=== PATIENT | male | born 1990 | race Caucasian/White ===

== ENCOUNTER 2023-05-14 13:21 | Emergency (ER) | payer SELFPAY ==
[2023-05-14 13:28] VITALS: BP 122/76; PULSE 85; TEMP 36.6; O2SAT 97; BMI 24.4
--- NOTE | 2023-05-14 13:54 | CRLHL7_ITS ---
For Patients: As a result of the Century Cures Act, medical imaging exams and procedure reports are released immediately into your electronic medical record. You may view this report before your referring provider. If you have questions, please contact your health care provider. INDICATION: Hematuria. TECHNIQUE: CT abdomen and pelvis without contrast. COMPARISON: None. FINDINGS: Lower chest: No focal consolidation. Evaluation of solid organs is limited secondary to lack of IV contrast administration. Liver: No suspicious focal hepatic lesion. Gallbladder and bile ducts: Gallbladder is decompressed, suboptimally evaluated. No calcified gallstones. Pancreas: Unremarkable. Spleen: Unremarkable. Adrenal glands: Unremarkable. Kidneys: No renal calculi or hydronephrosis bilaterally. Retroperitoneum: No lymphadenopathy. Bowel and mesentery: Bowel is nonobstructed. Normal appendix. No significant ascites. No pneumoperitoneum. Bladder: Mild circumferential bladder wall thickening. Reproductive organs: No prostatomegaly. Pelvic lymph nodes: No lymphadenopathy. Vessels: Unremarkable for unenhanced study. Abdominal wall: No acute abdominal wall abnormality. Bones: No suspicious/aggressive focal osseous lesion. Degenerative changes are noted at L4-L5, L5-S1, with calcifications in the intervertebral discs. IMPRESSION: 1. No renal calculi or hydronephrosis bilaterally. 2. Very mild circumferential bladder wall thickening is noted. Recommend correlation with urinalysis. Please note that all CT scans at this facility use dose modulation, iterative reconstruction, and/or weight-based dosing when appropriate to reduce radiation dose to as low as reasonably achievable. Dictated by Jane Kumar MD @ 05/14/2023 4:00:33 PM (Electronically Signed)
--- NOTE | 2023-05-14 13:55 | ED_ITS ---
HPI - General Adult General Chief complaint: Urogenital Problems, Male Stated complaint: blood in urine, stomach ache Time Seen by Provider: 05/14/23 13:36 History of Present Illness HPI narrative: Patient is a 33 year white male who has got a monogamous girlfriend with several children, he reports a 6 month history of intermittent urinary symptoms with inability to full void or occasional dribbling of urine. He reports that over the last week he has had some lower abdominal left-sided abdominal pain as well as some clotting and bleeding when he urinates. He has no dysuria. He has no fever chills peritonitis symptoms or nausea vomiting. He is concerned about this and wishes to have this worked up and studied. 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 He has had no trauma or injury. No dysuria or frequency to his report. Related Data Previous Rx's Medication Instructions Recorded sulfamethoxazole 800 1 tab PO BID 14 days #28 tabs 05/14/23 mg-trimethoprim 160 mg tablet Allergies Allergy/AdvReac Type Severity Reaction Status Date / Time No Known Drug Allergies Allergy Verified 05/14/23 13:32 Review of Systems Status of ROS: Reports: 6 or more systems reviewed and unremarkable except as noted in History and below PFSH [facility] Social History Smoking Status: Current every day smoker What tobacco products do you use: cigarettes Smoking packs per day: 0.5 Smoking cigarettes per day: 10.0 Do you use any of these nicotine containing products: E-Cigarettes and Vaping Products How often do you have a drink containing alcohol: never AUDIT-C Alcohol total score: 0 Non-prescribed substance use: marijuana (any form) service: No Exam Narrative: Exam Narrative: Objective: Vital signs unremarkable in general patient apparent distress Abdomen benign soft nontender no masses appears normal examination no testicular pain no obvious penile lesions or injury. Extremities normal neurologic nonfocal, good peripheral perfusion. Const: Vital Signs, click to edit/add: Vital Signs - 24 hr 05/14/23 13:28 Temperature 97.8 F Pulse Rate [Left P ulse Oximeter] 85 Blood Pressure [Le ft Upper Arm] 122/76 Pulse Oximetry 97 Oxygen Delivery Me thod Room Air Course Vital Signs Vital signs: Initial Vital Signs Temperature 97.8 F 05/14/23 13:28 Temperature Source Temporal Artery Scan 05/14/23 13:28 Pulse Rate 85 05/14/23 13:28 Pulse Rhythm Regular 05/14/23 13:28 Pulse Strength 3+ Normal 05/14/23 13:28 Blood Pressure 122/76 05/14/23 13:28 Blood Pressure Mean 91 05/14/23 13:28 Blood Pressure Position Sitting 05/14/23 13:28 Pulse Oximetry 97 05/14/23 13:28 Oxygen Delivery Method Room Air 05/14/23 13:28 Vital Signs Temperature 97.8 F 05/14/23 13:28 Pulse Rate 85 05/14/23 13:28 Blood Pressure 122/76 05/14/23 13:28 Pulse Oximetry 97 05/14/23 13:28 Oxygen Delivery Method Room Air 05/14/23 13:28 Temperature 97.8 F 05/14/23 13:28 Pulse Rate 85 05/14/23 13:28 Blood Pressure 122/76 05/14/23 13:28 Pulse Oximetry 97 05/14/23 13:28 Oxygen Delivery Method Room Air 05/14/23 13:28 Medical Decision Making MDM Narrative Medical decision making narrative: [age] white male with intermittent urinary symptoms over the last 6 months now with hematuria and some abdominal discomfort. Rule out kidney stone, rule out prostate issue. Patient will get a CT scan of the abdomen without contrast to rule out stone and make sure there is no other obvious pathology. Will check a urinalysis, lab studies. Disposition pending findings. Please see addendum Addendum: Noted on CT scan is his some mild bladder wall thickening consistent with likely urinary tract infection. Patient should have follow-up with regular doctor, will treat him for UTI and prostatitis and he will get Rocephin and Septra DS, follow up with regular doctor next week. Thanks Lab Data Labs: Lab Results 05/14/23 05/14/23 Range/Units 14:06 14:50 WBC 9.65 (4.50-11.00) K/uL RBC 4.80 (4.30-5.90) m/uL Hgb 14.8 (13.5-17.5) gm/dL Hct 44.2 (37.0-53.0) % MCV 92 (80-100) fL MCH 31 (26-34) pg MCHC 34 (32-36) gm/dL RDW Coeff of Radha 12.8 (11.5-15.5) % Plt Count 239 (140-440) K/uL Neut % (Auto) 58.3 (42.0-72.0) % Lymph % (Auto) 32.7 (20-44) % [place] % (Auto) 7.8 (0.0-11.0) % Eos % (Auto) 0.9 (0.0-7.0) % Baso % (Auto) 0.2 (0.0-3.0) % Neut # (Auto) 5.62 (1.7-7.0) K/uL Lymph # (Auto) 3.16 H (0.90-2.90) K/uL [place] # (Auto) 0.80 (0.00-0.90) K/UL Eos # (Auto) 0.09 (0.00-0.50) K/uL Baso # (Auto) 0.02 (0.00-0.30) K/uL Abs Immat Gran (auto) 0.01 (0.00-0.30) K/uL Imm/Tot Granulo (auto) 0.1 % INR 0.99 (0.91-1.10) APTT 30 (23-33) Seconds Sodium 139 (135-149) mmol/L Potassium 3.7 (3.6-5.1) mmol/L Chloride 104 (96-114) mmol/L Carbon Dioxide 32 (20-32) mmol/L BUN 12 (5-24) mg/dL Creatinine 0.8 (0.5-1.5) mg/dL Estimated Creat Clear 138.14 Estimated GFR 121 ml/min Glucose 91 (60-115) mg/dL Calcium 9.1 (8.4-10.6) mg/dL Total Bilirubin 0.4 (0.1-1.5) mg/dL Direct Bilirubin 0.0 (0.0-0.5) mg/dL AST 30 (12-35) U/L ALT 24 (4-50) U/L Alkaline Phosphatase 40 (40-150) U/L C-Reactive Protein 0.6 (0.5-1.0) mg/dL Total Protein 7.6 (6.0-8.3) g/dL Albumin 4.4 (3.3-5.0) g/dL Urine Color Yellow (Yellow) Urine Appearance Clear (Clear) Urine pH 7.0 (5.0-8.5) Ur Specific [place] 1.025 (1.000-1.030) Urine Protein Trace A (Negative) Urine Glucose (UA) Negative (Negative) Urine Ketones Trace A (Negative) Urine Blood Negative (Negative) Urine Nitrite Negative (Negative) Urine Bilirubin Negative (Negative) Urine Urobilinogen 1.0 (0.2-1.0) Ur Leukocyte Esterase 1+ A (Negative) Urine RBC 0-2 (0-2) Urine WBC 5-10 A (0-5) Ur Squamous Epith Cells Few (None-Few) Urine Bacteria Few A (None) Discharge Plan Discharge Clinical Impression: Hematuria, Prostatitis Patient Disposition: Home, Self-Care Condition: Stable Additional Instructions: Activity as tolerated, antibiotics for the next 10 days, follow-up with primary care in the next 3-4 days for reassessment and to discuss if urology appointment would be needed. Return to ED as needed Activity Level: No Restrictions Discharge Diet: Regular Prescriptions: New sulfamethoxazole-trimethoprim 800-160 mg tablet 1 tab PO BID 14 Days Qty: 28 0RF Stand Alone Forms: [employer] Info Instructions
[2023-05-14 14:15] LABS: Basophils Absolute Auto 0.02 K/uL (0.00-0.30); Basophils Percent Auto 0.2 % (0.0-3.0); Eosinophils Absolute Auto 0.09 K/uL (0.00-0.50); Eosinophils Percent Auto 0.9 % (0.0-7.0); Hematocrit 44.2 % (37.0-53.0); Hemoglobin* 14.8 gm/dL (13.5-17.5); Immature Granulocytes Abs Auto 0.01 K/uL (0.00-0.30); Immature Granulocytes Pct Auto 0.1 %; Lymphocytes Absolute Auto 3.16 K/uL (0.90-2.90); Lymphocytes Percent Auto 32.7 % (20-44); Mean Corpuscular HGB Conc 34 gm/dL (32-36); Mean Corpuscular Hemoglobin 31 pg (26-34); Mean Corpuscular Volume 92 fL (80-100); Monocytes Percent Auto 7.8 % (0.0-11.0); Neutrophils Absolute Auto 5.62 K/uL (1.7-7.0); Neutrophils Percent Auto 58.3 % (42.0-72.0); Platelet Count* 239 K/uL (140-440); RDW Coefficient of Variation % 12.8 % (11.5-15.5); White Blood Count* 9.65 K/uL (4.50-11.00)
[2023-05-14 14:21] LABS: Slide Review Reflex No
[2023-05-14 14:31] LABS: Albumin* 4.4 g/dL (3.3-5.0); Chloride* 104 mmol/L (96-114); INR 0.99 (0.91-1.10); Partial Thromboplastin Time* 30 Seconds (23-33); Prothrombin Time 13.7 Seconds
[2023-05-14 14:32] LABS: Potassium* 3.7 mmol/L (3.6-5.1); Sodium* 139 mmol/L (135-149)
[2023-05-14 14:34] LABS: Creatinine* 0.8 mg/dL (0.5-1.5); Est. Creatinine Clearance* 138.14; Estimated Glomerular Filt Rate 121 ml/min
[2023-05-14 14:35] LABS: Alanine Aminotransferase* 24 U/L (4-50); Alkaline Phosphatase* 40 U/L (40-150); Aspartate Amino Transferase* 30 U/L (12-35); Bilirubin Total* 0.4 mg/dL (0.1-1.5); Blood Urea Nitrogen* 12 mg/dL (5-24); Calcium* 9.1 mg/dL (8.4-10.6); Carbon Dioxide* 32 mmol/L (20-32); Glucose* 91 mg/dL (60-115); Total Protein* 7.6 g/dL (6.0-8.3)
[2023-05-14 14:37] LABS: C Reactive Protein* 0.6 mg/dL (0.5-1.0)
[2023-05-14 14:57] LABS: Appearance Urine Clear (Clear); Bilirubin Urine Negative (Negative); Blood Urine Negative (Negative); Color Urine Yellow (Yellow); Glucose Urine Negative (Negative); Ketones Urine Trace (Negative); Leukocyte Esterase Urine 1+ (Negative); Nitrite Urine Negative (Negative); Protein Urine Trace (Negative); Specific Gravity Urine 1.025 (1.000-1.030)
[2023-05-14 15:20] LABS: Bacteria Urine Few; RBC Urine 0-2 (0-2); Squamous Epithelial Cell Urine Few (None-Few)
[2023-05-14] MEDS: cefTRIAXone 500 MG VIAL IM (15:52)
--- NOTE | 2023-05-22 16:04 | ED.NURSE ---
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 Gold on 05/14/23, tried to get it today from [facility] and they couldn't find prescription. [facility] to provide bactrim info. They note [facility] sent a prescription for doxycycline today for patient. Called [facility] back, he notes they sent a new prescription today for chlamydia infection. [facility] understands he should take the doxycycline as prescribed by [facility], would recommend follow up this week with PCP to discuss further urinary concerns. [facility] is agreeable, denies further questions or concerns.
== END 2023-05-14 16:10 | disposition home or self-care (01) ==
PROVIDERS: Emergency Provider Family Medicine
DX: N41.9 Inflammatory disease of prostate, unspecified (principal); R31.9 Hematuria, unspecified
CPT/HCPCS: 36415; 74176; 80048; 80076; 81001; 85025; 85610; 85730; 86140; 87086; 96372; 99284; A9270; J0696